=== PATIENT | female | born 1990 | race Caucasian/White ===

== ENCOUNTER 2016-12-21 09:12 | Emergency (ER) | payer OTHER ==
[~2016-12-21] VITALS: Ht 172.7 cm; Wt 64.0 kg
[2016-12-21 09:13] VITALS: BP 125/83
[2016-12-21] MEDS ORDERED: DEXAMETHASONE 4 MG TABLET ONE (09:41)
[2016-12-21] MEDS ORDERED: KETOROLAC 30 MG/1 ML IM ONE (10:00)
[2016-12-21] MEDS ORDERED: DEXAMETHASONE 4 MG TABLET PO ONE (10:00)
[2016-12-21 10:02] LABS: HEMOGLOBIN 15.1 g/dL (11.7-16.4)
[2016-12-21] MEDS ORDERED: KETOROLAC 30 MG/1 ML ONE (10:42)
== END 2016-12-21 11:32 | disposition home or self-care (01) ==
LOC: ED 10:06
DX: J02.0 Streptococcal pharyngitis (principal)
CPT/HCPCS: 36415; 85025; 86308; 87880; 96372; 99284; J1885